=== PATIENT | male | born 1985 | race Caucasian/White ===

== ENCOUNTER 2019-06-11 23:25 | Emergency (ER) | payer OTHER ==
[2019-06-11 23:32] VITALS: BMI 25.7
[2019-06-12] MEDS ORDERED: SODIUM CHLORIDE 0.9% 1000 ML INFUS.BAG IV ONE ×2 (00:56→02:12)
--- NOTE | 2019-06-12 01:07 | PDOC ---
History of Present Illness - General Chief Complaint: Substance Abuse Stated Complaint: ANXIETY History Source: Patient Exam Limitations: No Limitations - History of Present Illness Initial Comments: 06/12/19 01:05 33-year-old male no past medical history does have a history of borderline hypertension currently not medicated here today complaining of racing heartbeat after having a weed brownie. Patient states he had a brownie around 7 PM did have weed in it he did also take some Benadryl and had some DayQuil now states that his heart is racing he has been monitoring his heart rate on his apple watch and has seen and go as high as 140s. Denies any history of dysrhythmia no history of fainting no chest pain but does describe tingling in his fingers no other current complaints. Denies any associated cocaine or other drug use denies any associated alcohol use Past History - Past Medical History Allergies/Adverse Reactions: Allergies Allergy/AdvReac Type Severity Reaction Status Date / Time No Known Allergies Allergy Verified 06/11/19 23:29 Home Medications: Ambulatory Orders NK [No Known Home Medication] 06/12/19 COPD: No CHF: No Seizures: Yes - Psycho Social/Smoking Cessation Hx Smoking History: Never smoked Hx Alcohol Use: No Drug/Substance Use Hx: Yes (Scottie) Review of Systems - Review of Systems Constitutional: No: Chills, Diaphoresis HEENTM: No: Eye Pain, Blurred Vision Respiratory: No: Cough, Orthopnea, Shortness of Breath Cardiac (ROS): Yes: Irregular Heart Rate, Palpitations. No: Chest Pain, Edema Neurological: Yes: Tingling Psychiatric: Yes: Anxiety All Other Systems: Reviewed and Negative *Physical Exam - Vital Signs Last Vital Signs Temp Pulse Resp BP Pulse Ox 98.1 F 122 H 20 142/89 95 06/11/19 23:29 06/11/19 23:29 06/11/19 23:29 06/11/19 23:29 06/11/19 23:29 - Physical Exam 06/12/19 01:06 Awake alert no acute distress lungs are clear bilaterally heart is noted to be tachycardic no murmurs rubs or gallops abdomen is soft and nontender extremities are warm well perfused patient is awake alert and oriented x3, cooperative. Speech is clear Heart Score/ECG Review #1 General ECG Interpretation: Sinus Rhythm, Normal Rate (91), Normal Intervals, No acute ischemic changes ED Treatment Course - LABORATORY CBC & Chemistry Diagram: 06/12/19 00:10 06/12/19 00:10 Medical Decision Making - Medical Decision Making 06/12/19 01:06 33-year-old status post sandra wang complaining of anxiety paresthesia and tachycardia. Noted to be tachycardic on exam differential includes coingestions of a stimulant combination of anticholinergic effect from Benadryl and DayQuil. Plan benzos for anxiolytic IV fluids electrolytes rule out any underlying electrolyte abnormality and tox screen likely DC home following fluids and medications EKG to rule out any underlying dysrhythmia Discharge - Discharge Information Problems reviewed: Yes Clinical Impression/Diagnosis: Substance abuse Condition: Improved Disposition: HOME - Admission No - Follow up/Referral Referrals: ON STAFF,NOT [Primary Care Provider] - - Patient Discharge Instructions Patient Printed Discharge Instructions: Substance Use Disorder, Tachycardia Additional Instructions: you should avoid combining drug use with over the counter cough and cold medication. follow up with your primary doctor. return for any problems or concerns. your labs are noted for elevated WBC count which could be a nonspecific sign of infection or stress . you should follow up wtih your regular doctor return for any fever, chills or any concerns. - Post Discharge Activity
[2019-06-12 01:12] LABS: BASO % 0.4 % (0-2.0); EOS % 0.2 % (0-4.5); HEMATOCRIT 43.4 % (35.4-49); HEMOGLOBIN 14.7 GM/dL (11.7-16.9); LYMPH % 8.4 % (8-40); MCH 28.9 pg (25.7-33.7); MCHC 33.9 g/dl (32.0-35.9); MEAN CELL VOLUME 85.2 fl (80-96); MONO % 4.1 % (3.8-10.2); NEUT % 86.9 % (42.8-82.8); PLATELET COUNT 365 K/MM3 (134-434); RBC 5.09 M/mm3 (4.00-5.60); RDW 12.5 % (11.9-15.9); WHITE BLOOD COUNT 14.1 K/mm3 (4.0-10.0)
[2019-06-12] MEDS ORDERED: LORazepam 2 MG/ML SDV VIAL ONE (01:34)
[2019-06-12 01:44] LABS: ALBUMIN 4.2 g/dl (3.4-5.0); BILIRUBIN,TOTAL 0.2 mg/dL (0.2-1); BLOOD UREA NITROGEN 14.3 mg/dL (7-18); CALCIUM 8.8 mg/dL (8.5-10.1); CREATININE 1.2 mg/dL (0.55-1.3); POTASSIUM 3.9 mmol/L (3.5-5.1); TOT PROT 7.9 g/dl (6.4-8.2)
[2019-06-12 02:35] LABS: COCAINE, UR NEGATIVE ng/ml (CUTOFF=300); METHADONE, UR NEGATIVE ng/ml (CUTOFF=300); OPIATES, URI NEGATIVE ng/ml (CUTOFF=300); PHENCYCLIDINE,URINE NEGATIVE ng/ml (CUTOFF=25); URINE AMPHETAMINES NEGATIVE ng/ml (CUTOFF=500); URINE BARBITURATES NEGATIVE ng/ml (CUTOFF=200); URINE BENZODIAZEPINES NEGATIVE ng/ml (CUTOFF=200)
[2019-06-12 03:16] VITALS: BP 138/80; PULSE 89; TEMP 98.6
--- NOTE | 2019-06-12 09:30 | EKG ---
Test Reason : Blood Pressure : / mmHG Vent. Rate : 091 BPM Atrial Rate : 091 BPM P-R Int : 154 ms QRS Dur : 100 ms QT Int : 348 ms P-R-T Axes : 042 039 024 degrees QTc Int : 428 ms NORMAL SINUS RHYTHM NORMAL ECG NO PREVIOUS ECGS AVAILABLE Confirmed by MD Zaheer, [place] ([id number]) on 06/12/2019 9:30:00 AM Referred By: Confirmed By:Dayton Schwab MD
== END 2019-06-12 05:18 | disposition home or self-care (01) ==
LOC: JER 23:25
PROC: 3E033NZ Introduction of Analgesics, Hypnotics, Sedatives into Peripheral Vein, Percutaneous Approach (ICD-10-PCS; principal; 2019-06-11)
DX: F12.10 Cannabis abuse, uncomplicated (principal); R00.2 Palpitations; F41.9 Anxiety disorder, unspecified
CPT/HCPCS: 36415; 80053; 80307; 83735; 85025; 93005; 93010; 99284-25; J7030